=== PATIENT | female | born 1950 | race Caucasian/White ===

== ENCOUNTER 2020-09-11 07:44 | Outpatient (CLI) | payer MEDICARE, SELFPAY ==
[2020-09-11 08:55] LABS: Alveolar/Arterial O2 Gradient 38.5 mmHg; Base Excess ABG 9.1 mEq/l (+/-2.0); Carboxyhemoglobin 0.3 % THb (0-2.0); Fractional Inspired Oxygen 32 %; HCO3 ABG 36.9 mEq/l (22.0-26.0); Methemoglobin ABG 0.2 %THb (0-1.5); Oxygen Content ABG 19.4 %vol (16.0-22.0); Oxygen Saturation ABG 97.9 % (95.0-100.0); Oxyhemoglobin 97.1 % THb (90.0-100.0); PO2 ABG 114.2 mmHg (80.0-100.0); PO2 FiO2 Ratio Arterial Blood 3.57 %; Reduced Hemoglobin 2.4 %THb (0-5.0); Total Hemoglobin 14.1 g/dL (12.0-18.0); pH ABG 7.375 (7.350-7.450)
[2020-09-11 09:04] LABS: PCO2 ABG 64.5 mmHg (35.0-45.0)
[2020-09-11 09:05] LABS: Device NASAL CANNULA; Modified Allen's Test Pass; Site Drawn RIGHT RADIAL
== END 2020-09-11 07:45 | disposition home or self-care (01) ==
PROVIDERS: Visit Provider Nurse Practitioner Family
DX: J44.9 Chronic obstructive pulmonary disease, unspecified (principal)
CPT/HCPCS: 36600; 82375; 82805; 83050

== ENCOUNTER 2020-10-13 14:03 | Outpatient (CLI) | payer MEDICARE, SELFPAY ==
[2020-10-13 15:00] VITALS: O2SAT 87
[2020-10-13 15:01] VITALS: O2SAT 87
[2020-10-13 15:02] VITALS: O2SAT 92
[2020-10-13 15:05] VITALS: PULSE 118; O2SAT 90
[2020-10-13 15:15] VITALS: O2SAT 93
--- NOTE | 2020-10-13 15:50 | HOMEO2EVAL ---
Home Oxygen Evaluation RC: Home Oxygen (O2) Evaluation Start: 10/13/20 15:48 Freq: Status: Active Protocol: RPE Activity Type Activity Date Activity User E-Sign Co-Sign Detail Recorded Client Recorded Date Recorded By Document 10/13/20 15:00 JENNIFER [email or web address] 10/13/20 15:50 JENNIFER Document 10/13/20 15:01 JENNIFER [email or web address] 10/13/20 15:50 JENNIFER Document 10/13/20 15:02 JENNIFER [email or web address] 10/13/20 15:50 JENNIFER Document 10/13/20 15:05 JENNIFER [email or web address] 10/13/20 15:50 JENNIFER Document 10/13/20 15:15 JENNIFER [email or web address] 10/13/20 15:50 JENNIFER 10/13/20 10/13/20 10/13/20 15:00 15:01 15:02 Home O2 Evaluation Test Phase Resting Resting Resting Oxygen Delivery Room Air Nasal Cannula Nasal Cannula Oxygen Flow Rate (L/min) 1 2 Pulse Oximetry (90-100 %) 87 L 87 L 92 Pulse Rate (60-100 beats/min) Activity Tolerance Ambulation Distance (feet) Home Oxygen Evaluation Comments Treatment Charges O2 Evaluation 10/13/20 10/13/20 15:05 15:15 Home O2 Evaluation Test Phase Exercise Resting Oxygen Delivery Nasal Cannula Nasal Cannula Oxygen Flow Rate (L/min) 2 2 Pulse Oximetry (90-100 %) 90 93 Pulse Rate (60-100 beats/min) 118 H Activity Tolerance Excellent Ambulation Distance (feet) 350 Home Oxygen Evaluation Comments PT REQUIRES 2 L REST AND ACTIVITY Treatment Charges
--- NOTE | 2020-10-13 15:51 | PCRCNOTE ---
HOME O2 EVAL FAXED TO OFFICE STAFF
--- NOTE | 2020-10-16 12:54 | P.PCNPFT_ITS ---
PFT Interpretation This is a pulmonary function test with pre and post-bronchodilator spirometry, plethysmography and diffusing capacity. The test was performed and results interpreted in accordance with the 2019 and 2005 ATS/ERS Task Force guidelines respectively using the Mike/Valerie reference equations. Findings: Spirometry: There is decreased maximal expiratory airflow at all lung volumes with a concave expiratory flow tracing. The inspiratory flow tracing is normal. The pre bronchodilator FVC is 1.34 L, 65% predicted. The pre bronchodilator FEV1 is 0.52 L, 36% predicted. The FEV 1: FVC ratio is 38%. The post bronchodilator FVC is 1.30 L, representing a 3% decrease. The post bronchodilator FEV1 is 0.55 L, representing a 7% increase. Plethysmography the total lung capacity is 3.72 L, 109% predicted. The functional residual capacity is 2.64 L, 202% predicted. The residual volume is 2.30 L, 171% predicted. Diffusing capacity: The absolute diffusing capacity is 11.2, 53% predicted. The diffusing capacity corrected for alveolar volume is 4.58, 125% predicted. Impression: There is a severe obstructive abnormality without significant im provement after inhaling a single dose of albuterol. The increase in residual volume is consistent with air trapping from an obstructive abnormality. Hyperinflation is present is demonstrated by the increase in functional residual capacity and is consistent with an obstructive abnormality. The absolute diffusing capacity is moderately decreased but is increased when corrected for alveolar volume. There are no prior studies for comparison
== END 2020-10-13 14:04 | disposition home or self-care (01) ==
PROVIDERS: Visit Provider Nurse Practitioner Family
DX: R09.02 Hypoxemia (principal); J44.9 Chronic obstructive pulmonary disease, unspecified; R94.2 Abnormal results of pulmonary function studies
CPT/HCPCS: 94060; 94618; 94726; 94729

== ENCOUNTER 2021-06-04 08:05 | Outpatient (CLI) | payer MEDICARE, SELFPAY ==
[2021-06-04 09:03] LABS: Alveolar/Arterial O2 Gradient 2.8 mmHg; Base Excess ABG 4.8 mEq/l (+/-2.0); HCO3 ABG 30.5 mEq/l (22.0-26.0); Oxygen Content ABG 18.7 %vol (16.0-22.0); Oxygen Saturation ABG 95.9 % (95.0-100.0); Oxyhemoglobin 94.7 % THb (90.0-100.0); PCO2 ABG 49.1 mmHg (35.0-45.0); PO2 ABG 80.9 mmHg (80.0-100.0); PO2 FiO2 Ratio Arterial Blood 4.05 %; pH ABG 7.411 (7.350-7.450)
[2021-06-04 09:05] LABS: Device NASAL CANNULA; Fractional Inspired Oxygen 28 %; Modified Allen's Test Pass; Site Drawn RIGHT RADIAL
[2021-06-04 09:20] VITALS: PULSE 80; O2SAT 90
[2021-06-04 09:22] VITALS: PULSE 106; O2SAT 82
[2021-06-04 09:23] VITALS: PULSE 110; O2SAT 86
[2021-06-04 09:24] VITALS: PULSE 96; O2SAT 89
[2021-06-04 09:32] VITALS: PULSE 90; O2SAT 92
--- NOTE | 2021-06-04 09:58 | HOMEO2EVAL ---
Evaluation was performed at [facility] Home Oxygen Evaluation RC: Home Oxygen (O2) Evaluation Start: 06/04/21 09:51 Freq: Status: Active Protocol: RPE Activity Type Activity Date Activity User E-Sign Co-Sign Detail Recorded Client Recorded Date Recorded By Document 06/04/21 09:20 JENNIFER [email or web address] 06/04/21 09:58 JENNIFER Document 06/04/21 09:22 JENNIFER [email or web address] 06/04/21 09:58 JENNIFER Document 06/04/21 09:23 JENNIFER [email or web address] 06/04/21 09:58 JENNIFER Document 06/04/21 09:24 JENNIFER [email or web address] 06/04/21 09:58 JENNIFER Document 06/04/21 09:32 JENNIFER [email or web address] 06/04/21 09:58 JENNIFER 06/04/21 06/04/21 06/04/21 09:20 09:22 09:23 Home O2 Evaluation Test Phase Resting Exercise Exercise Oxygen Delivery Room Air Room Air Nasal Cannula Oxygen Flow Rate (L/min) 1 Pulse Oximetry (90-100 %) 90 82 L 86 L Pulse Rate (60-100 beats/min) 80 106 H 110 H Ambulation Distance (feet) Home Oxygen Evaluation Comments Treatment Charges O2 Evaluation - Outpatient 06/04/21 06/04/21 09:24 09:32 Home O2 Evaluation Test Phase Exercise Resting Oxygen Delivery Nasal Cannula Room Air Oxygen Flow Rate (L/min) 2 Pulse Oximetry (90-100 %) 89 L 92 Pulse Rate (60-100 beats/min) 96 90 Ambulation Distance (feet) 600 Home Oxygen Evaluation Comments Home O2 required at 2 with exertion. Pt used wheeled walker. Pt walked for 6 minutes. Treatment Charges
== END 2021-06-04 08:06 | disposition home or self-care (01) ==
LOC: ANHPFT 08:06
PROVIDERS: Visit Provider Nurse Practitioner Family
DX: R09.02 Hypoxemia (principal); R06.02 Shortness of breath
CPT/HCPCS: 36600; 82805; 94618